=== PATIENT | female | born 1960 | race Caucasian/White ===

== ENCOUNTER 2017-02-20 06:33 | Day surgery (SDC) | payer OTHER ==
[~2017-02-20] VITALS: Ht 157.5 cm; Wt 99.2 kg
[2017-02-20] VITALS (9 sets, daily range): BP systolic 103–127; BP diastolic 50–72; PULSE 75–88; RESP 10–17; O2SAT 93–98
[~2017-02-20 06:33] MED LIST: DICL100G8 TOPICAL; HYDR-4003 PO; IBUP800T28 PO; IMI100 PO; INSU100I13 SUBQ; LEVO200T6 PO; LISI10TA PO; Lactated Ringer's 1,000 ML IV SCH
[2017-02-20] MEDS ORDERED: fentaNYL-PF 50 mCg/mL 2 mL Inj ONE (06:34)
[2017-02-20] MEDS ORDERED: Ondansetron 2 mg/mL 2 mL Inj ONE (06:34)
[2017-02-20] MEDS ORDERED: Propofol 10,000 mCg/mL 20 mL Inj ONE (06:34)
[2017-02-20] MEDS ORDERED: HYDROcodone-APAP 5-325 mg Tablet PO PRN (07:25)
[2017-02-20] MEDS ORDERED: Lactated Ringer's 1,000 ML IV ONE (07:27)
[2017-02-20] MEDS ORDERED: Dexamethasone 4 mg/mL Inj IVPUSH PRN (07:35)
[2017-02-20] MEDS ORDERED: MetoCLOpramide 5 mg/mL 2 mL Inj IVPUSH PRN (07:35)
[2017-02-20] MEDS ORDERED: Phenylephrine 10,000 mCg/mL Inj IVPUSH PRN (07:35)
[2017-02-20] MEDS ORDERED: HYDROmorphone 1 mg/mL Inj IVPUSH PRN (07:35)
[2017-02-20] MEDS ORDERED: Ondansetron 2 mg/mL 2 mL Inj IVPUSH PRN (07:35)
[2017-02-20] MEDS ORDERED: Lactated Ringer's 1,000 ML IV SCH (07:35)
[2017-02-20] MEDS ORDERED: EPHEDrine Sulfate 50 mg/mL Inj IVPUSH PRN (07:35)
[2017-02-20] MEDS ORDERED: Lactated Ringer's 500 ML IV PRN (07:35)
[2017-02-20] MEDS ORDERED: fentaNYL-PF 50 mCg/mL 2 mL Inj IVPUSH PRN (07:35)
--- NOTE | 2017-02-20 07:35 | PCM.HPANE ---
Patient Data Surgeon Admitting Provider: Attending Provider:Ángel Cervantes DO Primary Care Physician:Other,Physician Other Provider:Kathy Henley Anesthesia Reason for Visit Left Flexor Carpi Radialis Tendonitis Ht/WT & BMI Height (Feet): 5 Height (Inches): 2 Weight (Kilograms): 99.24 Body Mass Index 40.00 Allergies Coded Allergies: Sulfa (Sulfonamide Antibiotics) (Verified Allergy, Unknown, nausea, ) naproxen (Verified Allergy, Unknown, itch, 02/18/17) Past Anesthesia History Anesthesia History: Denies:: Abnormal Airway, Anesthesia Reactions, Difficult Intubation, Fam Anesthesia Reaction Diabetes History Hx Diabetes?: Yes (last Hgb A1c 10.3... approx 3 months ) Type of Diabetes: Type II Glycemic Control: Insulin Dependent MRSA MRSA: No Medications Hypertension Medication: Yes Home Meds Incl Beta Dany: No Reported Medications Diclofenac Gel (Voltaren Gel)100 Gm Tube1 Applic TOPICAL QID PRN For Pain #1 TUBE 02/18/17 Hydrocodone-Acetaminophen 5-325 mg 1 Each Tablet1 Tablet PO Q4H PRN For Pain Ref 0 02/18/17 Lisinopril 10 Mg [id number] Mg PO DAILY 30 Days Ref 0 02/18/17 Levothyroxine 200 Mcg [id number] Mcg PO DAILY Ref 0 02/18/17 Insulin Glargine (Lantus U100 Solostar Insulin Pen)100 Unit/1 Ml Insuln.pen28 Unit SUBQ afternoon #1 PENINJ Ref 0 02/18/17 Insulin Glargine (Lantus U100 Solostar Insulin Pen)100 Unit/1 Ml Insuln.pen30 Unit SUBQ QAM #1 PENINJ Ref 0 02/18/17 Sumatriptan (Imitrex)100 Mg [id number] Mg PO Q2H PRN migraine NTE 200mg/24hrs 02/18/17 Ibuprofen 800 Mg [id number] Mg PO QID PRN For Pain Ref 0 02/18/17 History HEENT History: Positive for:: Dysphagia (plate in neck- food occasionally gets stuck) Denies:: Abnormal Airway Cataracts (starting to form, no surgery) Difficult Intubation Glaucoma Hearing Problem Sinus Problem TMJ Cardiovascular History: Positive for:: Hypertension Denies:: AICD Abdominal Aortic Aneurism Atrial Fibrillation Cardiac Surgery Chest Pain Edema Heart Murmur Irregular Heartbeat Pacemaker Hx of Respiratory Problem?: No Respiratory History: Denies:: Asthma COPD Emphysema Oxygen Administration Pneumonia Tuberculosis Use of C-PAP Machine (sleep study +, pt did not fill CPAP) Use of Inhalers / NEBS Hx Neurologic Problems?: Yes Neurological History: Positive for:: Headaches Denies:: CVA Dementia Dizziness Multiple Sclerosis Parkinson's Disease Seizures Hx of GI Problems?: No Gastrointestinal History: Denies:: Cirrhosis Diverticulitis Gall Bladder Disease Gastroesphageal Reflux Gastrointestinal Bleeding Heartburn Hepatitis Hiatal Hernia Liver Disease Rectal Bleeding Hx of Problems?: No Genitourinary History: Denies:: Kidney Stones Urinary Tract Infection Female Hx: Positive for:: Problems with Breasts? (benign lumpectomy) Denies:: Currently Skin History: Denies:: History Skin Disorders? Pressure Ulcers Hx Musculoskeletal Problems?: Yes Musculoskeletal History: Positive for:: Back Injury (spondylithosis lumbar, cervical fusion c4-6 hx) Musculoskeletal Trauma (left hand current admission problem) Osteoarthritis (neck) Denies:: Degenerative Joint Fibromyalgia Joint Replacement Myasthenia Gravis Rheumatoid Arthritis Systemic Lupus Hx of Psycho/Social Problems?: No Psycho Social History: Denies:: Anxiety Hx Depression Hx Surgeries?: Yes (cervical fusion, shoulder surgery- ctr x4, dequervainsx 3) Hx Any Other Health Problems?: Yes Other History: Positive for:: Thyroid Disease Denies:: Cancer History Blood Transfusions: Positive for:: Accept Blood Products? Denies:: Blood Transfusions Hx Diabetes: Yes (last Hgb A1c 10.3... approx 3 months ) Hx Alcohol Use: NoHx Substance Use: NoHave You Smoked inLast 12 mo: No Stop/Bang S-Snoring: Do You Snore Loudly: No T-Tired: feel tired, fatigued: No O-Obsered: Observed not breath: No P-Blood Pressure: treated: Yes B- Body Mass Index > 35 kg/m2: Yes A- Age over 50: Yes N- Neck Large Circumference: Yes G- Gender Male: No JUDI Total Score: 4 JUDI Risk Assessment: High Risk, =/>3 Yes Risk Assessment Category Category 1A: Patient has history of documented sleep apnea, and HAS NOT received any narcotic, sedative or anesthesia administration during this stay. Category 1B: Patient has history of documented sleep apnea, and HAS received any narcotic , sedative or anesthesia administration during this stay Category 2: Patient has SUSPECTED Obstructive Sleep Apnea, and HAS received any narcotic , sedative or anesthesia administration during this stay. Category 3: Patient has SUSPECTED Obstructive Sleep Apnea and HAS NOT received narcotic, sedative or anesthesia administration during this stay. Category 4: Outpatient in Procedural Areas with known sleep apnea or who screen positive for High Risk via the STOP/BANG questionnaire. Exam Exam Vital Signs Vital Signs Date Time Temp Pulse Resp B/P Pulse Ox O2 Delivery O2 Flow Rate FiO2 02/20/17 07:28 36.8 80 14 127/72 96 Room Air General Appearance: Alert HEENT/AIRWAY: MP 3, Neck Movement Lungs: Clear to Auscultation Heart: Exam Unremarkable Meds/Labs/Diagnostics Admission Meds Current Medications Lactated Ringer's (Lr) 1,000 ml @ ud STK-MED ONCE IV Last administered on 02/20t 07:27; Start 02/20/17 at 07:27; Stop 02/20/17 at 07:28; Status DC Plan Impression Patient chart reviewed, patient interviewed and anesthestic plan with risks, benefits, and alternatives discussed, and informed consent obtained. ASA Physical Status: ASA3 Severe Disease Anesthetic Support Modalities: Hemodynamic Monitoring Anesthetic Plan: GA Bene/Risks/Altern/Consents: Yes HP Complete Prior to Induction: Yes Early,Jeff Metcalf MD Feb 20, 2017 07:34
[2017-02-20] MEDS ORDERED: Lidocaine 1%-Epi 1:100,000 20 mL Inj INFILTRATE ONE (08:21)
--- NOTE | 2017-02-20 09:39 | PCM.ANEP1 ---
Post Anesthesia Phase 1 PACU Phase 1 Assessment Vital Signs Vital Signs Date Time Temp Pulse Resp B/P Pulse Ox O2 Delivery O2 Flow Rate FiO2 02/20/17 09:25 77 15 117/65 97 Room Air 02/20/17 09:21 36.2 88 16 127/67 98 Simple Mask 8 02/20/17 07:28 36.8 80 14 127/72 96 Room Air Anesthetic Administered: GA Level of Alertness: Awake, talking CABALLERO's with Equal Strength: Yes Pain: No Nausea or Vomiting: No Airway Device: Oralpharangeal Airway Oxygen Delivery: Simple Mask Lungs: Clear to Auscultation Dermatome Level: Full Sensation Early,Jeff Metcalf MD Feb 20, 2017 09:39
--- NOTE | 2017-02-20 09:39 | PCM.ANEP2 ---
Post Anesthesia Evaluation ASA/CMS Post Anesthesia VS in Patient's Normal Range?: Yes Resp Stable; Airway Patent?: Yes CV Function & Hydration Stable: Yes Mental Status Recovered?: Yes Pain control Satisfactory?: Yes N/V Control Satisfactory?: Yes Early,Jeff Metcalf MD Feb 20, 2017 09:39
--- NOTE | 2017-02-20 10:30 | OP ---
[address] [address] OPERATIVE REPORT PATIENT: KEO RG : 1960 MR#: [id number] ADMIT: 02/20/2017 JOB ID: [id number] DATE OF SURGERY: 02/20/2017 PREOPERATIVE DIAGNOSIS(ES): 1. Left flexor carpi radialis tendinitis. 2. Left wrist calcific tendinitis. POSTOPERATIVE DIAGNOSIS(ES): 1. Left flexor carpi radialis tendinitis. 2. Left wrist calcific tendinitis. 3. Left flexor pollicis longus tenosynovitis. PROCEDURES: 1. Left flexor carpi radialis tendon debridement. 2. Left wrist excision of calcifications. 3. Left flexor pollicis longus tenosynovectomy. SURGEON: Ángel Cervantes DO ANESTHESIA: General. HISTORY: The patient is a pleasant 56-year-old female that presents with a longstanding history of left wrist pain. This was related to her work. She was treated conservatively with bracing as well as physical therapy. She did not have any improvement in her symptoms. She did present with calcifications just volar to her FCR tendon as identified on radiographs as well as on MRI. This was the point of localized tenderness with daily conservative treatment. I gave the patient the option to proceed with a left FCR tendon debridement as well as excision of the calcifications. The patient understood the risks include, but not limited to, neurovascular injury, tendon injury, infection, failure to resolve the patient's preoperative symptoms, stiffness, persistent pain all of which may require further intervention. The patient had all questions answered. Consent was signed and placed in the chart. PROCEDURE IN DETAIL: The patient was brought to the operative suite and placed supine on the operating table. Surgical time-out was performed. Everyone in the room was in agreement. After appropriate anesthesia was obtained, a left upper arm tourniquet was applied, and the left upper extremity prepped and draped in a sterile fashion. Left upper extremity then exsanguinated and the tourniquet inflated to 250 mmHg. A short FCR incision was made, centered at the wrist crease and extended in a Horton type of incision overlying the thenar. The apex was at the scaphoid tubercle. Dissection was carried down to the FCR tendon. The tendon sheath was then incised. There was significant thickening of the tendon sheath distally with complete release of the FCR tendon. The tendon was able to be further mobilized. There was only minimal to no synovitis surrounding the tendon which was debrided with the FCR tendon retracted ulnarly. The sub sheath next was incised within the dorsal aspect of the sub sheath where some small areas of calcifications that were excised. A significant portion of the calcifications were intertwined with the volar carpal ligaments. These were left intact. Fluoroscopy was utilized to verify excision of the majority of the calcifications and the previous calcific mass which appeared more to be more disseminated currently. Further irrigation was then performed. The FPL tendon was identified at the floor and found to have significant tenosynovitis. Tenosynovectomy was then performed circumferentially around the FPL tendon. Further irrigation was then performed followed by final radiographic projections to verify that there had been excision completely of the calcific mass volar to the FCR tendon. The skin was then closed with 5-0 nylon in a simple interrupted fashion. The patient was then placed in a well-padded, well-molded volar resting splint. ESTIMATED BLOOD LOSS: Less than 1 cc. COMPLICATIONS: None. DISPOSITION: The patient tolerated the procedure well. Anesthesia was reversed. The patient was transferred back to recovery. POSTOPERATIVE PLAN: The patient is currently in a short arm volar splint. She will be in the splint for two weeks. We will remove the sutures at that time and have her start working on range of motion and gradual strengthening with occupational therapy. Her work restriction currently is to be off for the first five days postop and then she can return with restricted use of the left upper extremity.
== END 2017-02-20 23:59 | disposition home or self-care (01) ==
LOC: SAS 06:33
PROVIDERS: ATTEND Orthopaedic Surgery
DX: M65.232 Calcific tendinitis, left forearm (principal); M65.4 Radial styloid tenosynovitis [de Quervain]; E11.319 Type 2 diabetes mellitus with unspecified diabetic retinopathy without macular edema; E03.9 Hypothyroidism, unspecified; G47.30 Sleep apnea, unspecified; F32.9 Major depressive disorder, single episode, unspecified; G43.909 Migraine, unspecified, not intractable, without status migrainosus; E66.9 Obesity, unspecified; Z68.41 Body mass index [BMI] 40.0-44.9, adult; Z79.4 Long term (current) use of insulin
CPT/HCPCS: 25001; 76000; J2405; J3010; J7120